=== PATIENT | male | born 1955 | race Caucasian/White ===

== ENCOUNTER 2025-01-17 21:37 | Inpatient (IN) | payer MEDICARE, OTHER ==
[~2025-01-17] VITALS: Ht 165.1 cm; Wt 74.8 kg
[2025-01-17 22:43] LABS: RED BLOOD CELL COUNT(AUTO) 4.49 MIL/uL (4.06-5.63); RED CELL DISTRIBUTION WIDTH 16.9 % (12.1-16.2); WHITE BLOOD COUNT (AUTO) 7.8 K/uL (3.6-10.2)
[2025-01-17 22:51] LABS: CREATININE 0.9 mg/dL (0.6-1.3); SODIUM SERUM 136 mmol/L (136-145); UREA NITROGEN, BLOOD 8 mg/dL (7-18)
[2025-01-17 22:57] LABS: ASPARTATE AMINOTRANSFERASE 51 U/L (15-37); ETHANOL < 3 MG/DL (0-10); TOTAL PROTEIN, SERUM 6.6 g/dL (6.4-8.2)
[2025-01-17 23:29] LABS: BASOPHILS % (MANUAL) 1 % (0-2); EOSINOPHILS % (MANUAL) 4 % (0-8); LYMPHOCYTES % (MANUAL) 36 % (20-40); MONOCYTES % (MANUAL) 8 % (2-10); NEUTROPHILS % (MANUAL) 51 % (42-75); PLATELET ESTIMATE FEW CLUMPS PLATELET
[2025-01-17 23:35] LABS: PLATELET COUNT (AUTO) 144 K/uL (152-348)
[2025-01-17] MEDS ORDERED: BISA10SU61 RC (23:55)
[2025-01-17] MEDS ORDERED: THIA100T13 PO (23:55)
[2025-01-17] MEDS ORDERED: FURO-152 PO (23:55)
[2025-01-17] MEDS ORDERED: ACET650T10 PO (23:55)
[2025-01-17] MEDS ORDERED: LEVO100T PO (23:55)
[2025-01-17] MEDS ORDERED: MAGN400O6 PO (23:55)
[2025-01-17] MEDS ORDERED: LACT1CAP89 PO (23:55)
[2025-01-17] MEDS ORDERED: LACT10SO7 PO (23:55)
[2025-01-17] MEDS ORDERED: LORA-259 PO (23:55)
[2025-01-17] MEDS ORDERED: TEMA15CA PO (23:55)
[2025-01-17] MEDS ORDERED: QUET50TA24 PO (23:55)
[2025-01-17] MEDS ORDERED: MULT-1119 PO (23:55)
[2025-01-17] MEDS ORDERED: FOLI1TAB94 PO (23:55)
[2025-01-18 02:55] VITALS: BP 116/79
[2025-01-18] MEDS ORDERED: LORAZEPAM 1 MG TABLET PO PRN (03:45)
[2025-01-18] MEDS ORDERED: TEMAZEPAM 7.5 MG CAPSULE PO PRN ×2 (03:45)
[2025-01-18] MEDS: BLOOD SUGAR DIAGNOSTIC 1 EACH STRIP VI ONE (03:45)
[2025-01-18] MEDS ORDERED: MAG HYDROX/AL HYDROX/SIMETH 30 ML LIQUID UDC PO PRN (03:45)
[2025-01-18] MEDS ORDERED: MAGNESIUM HYDROXIDE 30 ML LIQUID UDC PO PRN (03:45)
[2025-01-18 04:14] VITALS: BP 125/89; TEMP 97.5; O2SAT 100
[2025-01-18 04:33] VITALS: BP 125/89; TEMP 97.5; O2SAT 100
[2025-01-18 08:29] VITALS: BP 124/86; TEMP 98; O2SAT 98
[2025-01-18] MEDS ORDERED: ACET325T53 PO (08:59)
[2025-01-18] MEDS ORDERED: NA P133E RC (08:59)
[2025-01-18 15:57] VITALS: BP 116/76; TEMP 98; O2SAT 98
[2025-01-18] MEDS ORDERED: FLEET ENEMA 133 ML BOTTLE RC PRN (16:00)
[2025-01-18] MEDS ORDERED: BISACODYL 10 MG SUPP.RECT RC PRN (16:00)
[2025-01-18 20:00] VITALS: BP 105/67; TEMP 98.1; O2SAT 97
[2025-01-18] MEDS: LACTULOSE 20 G/30 ML LIQUID UDC PO SCH (20:21)
[2025-01-19] MEDS: TEMAZEPAM 15 MG CAPSULE PO PRN (00:32)
[2025-01-19] MEDS: LEVOTHYROXINE SODIUM 100 MCG TABLET PO SCH (06:10)
[2025-01-19 08:25] VITALS: BP 116/68; TEMP 98.1; O2SAT 97
[2025-01-19] MEDS ORDERED: LACTOBACILLUS ACIDOPHILUS C PO SCH (09:00)
[2025-01-19] MEDS: CULTURELLE CAPSULE PO SCH (10:23)
[2025-01-19] MEDS: THIAMINE HCL 100 MG TABLET PO SCH (10:24)
[2025-01-19] MEDS: MULTIVITAMINS,THERAPEUTIC TABLET PO SCH (10:24)
[2025-01-19] MEDS: FUROSEMIDE 20 MG TABLET PO SCH (10:25)
[2025-01-19] MEDS: FOLIC ACID 1 MG TABLET PO SCH (10:26)
[2025-01-19 16:18] VITALS: BP 118/61; TEMP 98.1; O2SAT 97
[2025-01-19] MEDS: ACETAMINOPHEN 325 MG TABLET PO PRN (16:36)
[2025-01-19 20:00] VITALS: BP 118/70; TEMP 97.5; O2SAT 98
[2025-01-19] MEDS: MUPIROCIN 2% OINT 22 GM TUBE NS SCH (20:28)
[2025-01-20] MEDS: LORAZEPAM 1 MG TABLET PO PRN (04:05)
[2025-01-20 09:23] VITALS: BP 114/68; TEMP 98.7; O2SAT 97
[2025-01-20 15:04] VITALS: BP 96/68; TEMP 98.3; O2SAT 98
[2025-01-20 20:00] VITALS: BP 111/84; TEMP 98.5; O2SAT 97
[2025-01-20] MEDS: PHYTONADIONE 10 MG/1 ML AMPUL SQ ONE (22:11)
[2025-01-21 08:18] VITALS: BP 104/74; TEMP 98.3; O2SAT 98
[2025-01-21 16:55] VITALS: BP 109/61; TEMP 98.1; O2SAT 97
[2025-01-21 20:09] VITALS: BP 108/72; TEMP 98.1; O2SAT 96
[2025-01-22 08:35] VITALS: BP 112/80; TEMP 98.3; O2SAT 98
[2025-01-22 16:47] VITALS: BP 110/81; TEMP 98.1; O2SAT 97
[2025-01-22 20:00] VITALS: TEMP 98.5; O2SAT 100
[2025-01-23 08:16] VITALS: BP 124/61; TEMP 98.3; O2SAT 98
[2025-01-23] MEDS: ENSURE ENLIVE (VAN) 240 ML LIQUID PO SCH (09:15)
[2025-01-23 16:37] VITALS: TEMP 98.5; O2SAT 100
[2025-01-23 20:00] VITALS: BP 101/63; TEMP 97.2; O2SAT 98
[2025-01-24 07:51] VITALS: BP 115/75; TEMP 97.6; O2SAT 97
[2025-01-24 15:59] VITALS: BP 114/77; TEMP 97.4; O2SAT 98
[2025-01-25 08:00] VITALS: BP 123/75; TEMP 97.6; O2SAT 98
[2025-01-25 16:00] VITALS: BP 140/61; TEMP 97.6; O2SAT 98
[2025-01-25 19:00] VITALS: BP 112/63; TEMP 97.6; O2SAT 100
[2025-01-26 08:05] VITALS: BP 150/71; TEMP 97.6; O2SAT 98
[2025-01-26 16:35] VITALS: BP 137/76; TEMP 97; O2SAT 98
[2025-01-26 19:56] VITALS: BP 104/69; TEMP 98.2; O2SAT 98
[2025-01-27 07:50] VITALS: BP 111/81; TEMP 98.6; O2SAT 96
[2025-01-27 16:49] VITALS: BP 132/92; TEMP 98.4; O2SAT 99
[2025-01-27 20:00] VITALS: BP 111/75; TEMP 98.5; O2SAT 99
[2025-01-28 08:49] VITALS: BP 118/67; TEMP 98.6; O2SAT 96
[2025-01-28 16:36] VITALS: BP 132/92; TEMP 98.4; O2SAT 99
[2025-01-28 21:58] VITALS: BP 128/85; TEMP 98; O2SAT 100
[2025-01-29 08:14] VITALS: BP 107/74; TEMP 98.4; O2SAT 99
[2025-01-29 16:11] VITALS: BP 112/81; TEMP 98.4; O2SAT 99
[2025-01-29 20:22] VITALS: BP 114/68; TEMP 97.2; O2SAT 100
[2025-01-30 08:18] VITALS: BP 117/84; TEMP 98.6; O2SAT 96
[2025-01-30 16:29] VITALS: BP 118/79; TEMP 98.4; O2SAT 99
== END 2025-01-30 16:42 | DRG 885 ==
LOC: ER 21:37 → GPS 01-18 02:05
PROVIDERS: ADMIT Psychiatry & Neurology Psychiatry; ATTEND Internal Medicine
DX: F29 Unspecified psychosis not due to a substance or known physiological condition (principal); K76.82 Hepatic encephalopathy; K70.31 Alcoholic cirrhosis of liver with ascites; Z79.890 Hormone replacement therapy; Z79.899 Other long term (current) drug therapy; Z22.322 Carrier or suspected carrier of Methicillin resistant Staphylococcus aureus; E03.9 Hypothyroidism, unspecified; E66.9 Obesity, unspecified; Z68.27 Body mass index [BMI] 27.0-27.9, adult; Z91.199 Patient's noncompliance with other medical treatment and regimen due to unspecified reason; I10 Essential (primary) hypertension; I25.10 Atherosclerotic heart disease of native coronary artery without angina pectoris; R94.31 Abnormal electrocardiogram [ECG] [EKG]; F10.10 Alcohol abuse, uncomplicated
CPT/HCPCS: 36415; 70030-TC; 76700; 84443; 85730; A4663; G0480; J3430

== ENCOUNTER 2025-02-16 20:38 | Inpatient (IN) | payer MEDICARE, OTHER ==
[~2025-02-16] VITALS: Ht 167.6 cm; Wt 80.9 kg
[~2025-02-16 20:38] MED LIST: ACET325T53 PO; ACET650T10 PO; BISA10SU61 RC; FOLI1TAB94 PO; FURO-152 PO; LACT10SO7 PO; LACT1CAP89 PO; LEVO100T PO; MAGN400O6 PO; MULT-1119 PO; NA P133E RC; THIA100T13 PO
[2025-02-16 21:11] LABS: PLATELET COUNT (AUTO) 147 K/uL (152-348); RED BLOOD CELL COUNT(AUTO) 3.92 MIL/uL (4.06-5.63); RED CELL DISTRIBUTION WIDTH 17.1 % (12.1-16.2); WHITE BLOOD COUNT (AUTO) 6.3 K/uL (3.6-10.2)
[2025-02-16 21:22] LABS: CREATININE 0.7 mg/dL (0.6-1.3); SODIUM SERUM 137 mmol/L (136-145); UREA NITROGEN, BLOOD 8 mg/dL (7-18)
[2025-02-16 21:26] LABS: ETHANOL < 3 MG/DL (0-10)
[2025-02-16 21:28] LABS: ASPARTATE AMINOTRANSFERASE 44 U/L (15-37); TOTAL PROTEIN, SERUM 6.6 g/dL (6.4-8.2)
[2025-02-16 21:37] LABS: NT-PRO BNP 267 pg/mL (0-125)
[2025-02-16] MEDS: IV NS 1000 ML 1,000 ML IV ONE ×2 (21:43→22:20)
[2025-02-16 21:44] LABS: *BLOOD, URINE NEGATIVE (NEGATIVE); *CLARITY,URINE CLEAR (CLEAR); *COLOR,URINE YELLOW (YELLOW); *KETONES,URINE TRACE (NEGATIVE); *PROTEIN,URINE NEGATIVE (NEGATIVE); *UROBILINOGEN,URINE 1.0 E.U./dl (NORMAL); LEUKOCYTE ESTERASE ,URINE NEGATIVE (NEGATIVE); NITRITE, URINE NEGATIVE (NEGATIVE); UGLUCOSE NEGATIVE (NEGATIVE)
[2025-02-16] MEDS ORDERED: diphenhydrAMINE 50 MG/1 ML VIAL ONE (21:44)
[2025-02-16] MEDS ORDERED: LORAZEPAM 2 MG/1 ML VIAL ONE (21:46)
[2025-02-16] MEDS: diphenhydrAMINE 50 MG/1 ML VIAL IV ONE (21:49)
[2025-02-16] MEDS: LORAZEPAM 2 MG/1 ML VIAL IV ONE (21:49)
[2025-02-16 21:50] LABS: *AMPHETAMINE, URINE NEGATIVE (NEGATIVE); *BARBITURATE, URINE NEGATIVE (NEGATIVE); *BENZODIAZEPINE, URINE NEGATIVE (NEGATIVE); *CANNABINOID, URINE NEGATIVE (NEGATIVE); *COCCAINE, URINE NEGATIVE (NEGATIVE); *OPIATE, URINE NEGATIVE (NEGATIVE); *PHENCYCLIDINE SCREEN,URINE NEGATIVE (NEGATIVE); FENTANYL, URINE NEGATIVE (NEGATIVE)
[2025-02-16 21:51] LABS: *BILIRUBIN,URIN 1+ (NEGATIVE)
[2025-02-16 21:54] LABS: CALCIUM OXALATE CRYSTALS,UR MODERATE /HPF (NONE SEEN); SQUAMOUS EPITHELIAL CELL,UR FEW /HPF (NONE SEEN)
[2025-02-16 22:00] LABS: LACTIC ACID 2.6 mmol/L (0.4-2.0)
[2025-02-16] MEDS ORDERED: CEFTRIAXONE /D5W 50ML IVPB **ER PYXIS IV ONE (22:17)
[2025-02-16 23:26] VITALS: BP 142/107
[2025-02-16] MEDS ORDERED: MAGNESIUM HYDROXIDE 30 ML LIQUID UDC PO PRN (23:30)
[2025-02-16] MEDS ORDERED: ONDANSETRON 4 MG/2 ML VIAL IV PRN (23:30)
[2025-02-16] MEDS ORDERED: ACETAMINOPHEN 325 MG TABLET PO PRN (23:30)
[2025-02-17] VITALS (7 sets, daily range): BP systolic 103–138; BP diastolic 77–99; TEMP 97.4–98.3; O2SAT 97–100
[2025-02-17] MEDS: POTASSIUM CHLORIDE 20 MEQ TAB.PRT.SR PO ONE (00:55)
[2025-02-17] MEDS: ENOXAPARIN SODIUM 40 MG/0.4 ML DISP.SYRIN SQ SCH (00:56)
[2025-02-17] MEDS: IV NS 1000 ML 1,000 ML IV PRN (01:05)
[2025-02-17] MEDS ORDERED: CEFEPIME HCL 1 G VIAL ONE (03:02)
[2025-02-17] MEDS: CEFEPIME (MAXEPIME) 1 G in IV DEXTROSE 5% 50 ML IV SCH (05:12)
[2025-02-17 06:50] LABS: PLATELET COUNT (AUTO) 136 K/uL (152-348); RED BLOOD CELL COUNT(AUTO) 3.59 MIL/uL (4.06-5.63); RED CELL DISTRIBUTION WIDTH 16.8 % (12.1-16.2); WHITE BLOOD COUNT (AUTO) 7.1 K/uL (3.6-10.2)
[2025-02-17 07:14] LABS: CREATININE 0.6 mg/dL (0.6-1.3); SODIUM SERUM 137 mmol/L (136-145); UREA NITROGEN, BLOOD 8 mg/dL (7-18)
[2025-02-17] MEDS: PANTOPRAZOLE SODIUM 40 MG VIAL IV SCH ×2 (09:26→21:11)
[2025-02-17] MEDS ORDERED: POVI37802 TP (13:04)
[2025-02-17] MEDS ORDERED: DOCU100C36 PO (13:05)
[2025-02-17] MEDS ORDERED: MAG-5 PO (13:07)
[2025-02-17] MEDS ORDERED: POTA10CA43 PO (13:08)
[2025-02-17] MEDS ORDERED: LORA-259 PO (13:09)
[2025-02-17] MEDS ORDERED: AMIN30LI2 PO (13:10)
[2025-02-17] MEDS ORDERED: RISP0.5T65 PO (13:11)
[2025-02-17] MEDS ORDERED: SENN8.6T19 PO (13:11)
[2025-02-17] MEDS ORDERED: TEMA15CA PO (13:12)
[2025-02-17] MEDS ORDERED: ZINC220T3 PO (13:13)
[2025-02-17] MEDS ORDERED: ASCO500C18 PO (13:13)
[2025-02-17] MEDS ORDERED: LORAZEPAM 2 MG/1 ML VIAL IM ONE (14:15)
[2025-02-17] MEDS ORDERED: LORAZEPAM 2 MG/1 ML VIAL IV ONE (14:15)
[2025-02-17] MEDS ORDERED: LORAZEPAM 2 MG/1 ML VIAL IV PRN (16:00)
[2025-02-18 05:48] VITALS: BP 117/72; TEMP 98; O2SAT 97
[2025-02-18] MEDS: LEVOTHYROXINE SODIUM 100 MCG TABLET PO SCH (06:53)
[2025-02-18] MEDS: THIAMINE HCL 100 MG TABLET PO SCH (09:42)
[2025-02-18] MEDS: FOLIC ACID 1 MG TABLET PO SCH (09:42)
[2025-02-18] MEDS: LACTULOSE 20 G/30 ML LIQUID UDC PO SCH (09:42)
[2025-02-18] MEDS: MULTIVITAMINS,THERAPEUTIC TABLET PO SCH (09:42)
[2025-02-18 10:18] LABS: PLATELET COUNT (AUTO) 133 K/uL (152-348); RED BLOOD CELL COUNT(AUTO) 3.47 MIL/uL (4.06-5.63); RED CELL DISTRIBUTION WIDTH 16.9 % (12.1-16.2); WHITE BLOOD COUNT (AUTO) 7.1 K/uL (3.6-10.2)
[2025-02-18 10:40] LABS: CREATININE 0.6 mg/dL (0.6-1.3); SODIUM SERUM 139 mmol/L (136-145); UREA NITROGEN, BLOOD 10 mg/dL (7-18)
[2025-02-18] MEDS: QUETIAPINE FUMARATE 25 MG TABLET PO SCH (10:48)
[2025-02-18 11:37] VITALS: BP 120/84; TEMP 98.2; O2SAT 96
[2025-02-18 14:25] VITALS: O2SAT 97
[2025-02-18 15:46] VITALS: BP 96/66; TEMP 98.4; O2SAT 96
[2025-02-18] MEDS: LORAZEPAM 2 MG/1 ML VIAL IM PRN (16:44)
[2025-02-18 19:25] VITALS: BP 143/69; TEMP 98.8; O2SAT 98
[2025-02-18 21:17] VITALS: O2SAT 97
[2025-02-18] MEDS: MUPIROCIN 2% OINT 22 GM TUBE NS SCH (21:34)
[2025-02-19 06:23] VITALS: BP 121/89; TEMP 98.6; O2SAT 98
[2025-02-19 06:38] LABS: PLATELET COUNT (AUTO) 134 K/uL (152-348); RED BLOOD CELL COUNT(AUTO) 3.41 MIL/uL (4.06-5.63); RED CELL DISTRIBUTION WIDTH 16.9 % (12.1-16.2); WHITE BLOOD COUNT (AUTO) 5.8 K/uL (3.6-10.2)
[2025-02-19 06:54] LABS: CREATININE 0.6 mg/dL (0.6-1.3); SODIUM SERUM 141 mmol/L (136-145); UREA NITROGEN, BLOOD 10 mg/dL (7-18)
[2025-02-19] MEDS: LORAZEPAM 1 MG TABLET PO SCH (09:04)
[2025-02-19 11:06] VITALS: BP 104/65; TEMP 97.7; O2SAT 99
[2025-02-19 15:19] VITALS: BP 123/66; TEMP 98.4; O2SAT 96
[2025-02-19 15:29] VITALS: O2SAT 96
[2025-02-19 19:00] VITALS: BP 134/84; TEMP 98.2; O2SAT 98
[2025-02-20 00:25] VITALS: O2SAT 96
[2025-02-20 04:00] VITALS: BP 111/85; TEMP 98.8; O2SAT 97
[2025-02-20 06:39] LABS: PLATELET COUNT (AUTO) 126 K/uL (152-348); RED BLOOD CELL COUNT(AUTO) 3.23 MIL/uL (4.06-5.63); RED CELL DISTRIBUTION WIDTH 16.1 % (12.1-16.2); WHITE BLOOD COUNT (AUTO) 6.5 K/uL (3.6-10.2)
[2025-02-20 06:55] LABS: CREATININE 0.6 mg/dL (0.6-1.3); SODIUM SERUM 140 mmol/L (136-145); UREA NITROGEN, BLOOD 8 mg/dL (7-18)
[2025-02-20] MEDS: ARGININE/GLUTAMINE/CALCIUM BMB 1 EACH POWD.PACK PO SCH (09:00)
[2025-02-20 11:36] VITALS: BP 116/85; TEMP 98.6; O2SAT 99
[2025-02-20] MEDS ORDERED: LORAZEPAM 2 MG/1 ML VIAL IV ONE (11:45)
[2025-02-20 12:01] VITALS: O2SAT 98
[2025-02-20 15:39] VITALS: BP 96/65; TEMP 98.4; O2SAT 100
[2025-02-20] MEDS: PANTOPRAZOLE SODIUM 40 MG TABLET.DR PO SCH (16:41)
[2025-02-20] MEDS: SODIUM HYPOCHLORITE 0.125% (QUARTER STRENGTH) 473 ML BOTTLE TP SCH (16:42)
[2025-02-20] MEDS: POTASSIUM CHLORIDE 20 MEQ TAB.PRT.SR PO ONE (16:51)
[2025-02-20 19:20] LABS: TOTAL VOLUME,BODY FLUID 5000 mL
[2025-02-20 19:21] LABS: WBC, BODY FLUID 126 /cu. mm (0-200/cu.mm)
[2025-02-20 19:30] VITALS: BP 116/75; TEMP 98.7; O2SAT 99
[2025-02-20 20:45] LABS: MONOCYTES,BODY FLUID 16 %
[2025-02-20] MEDS: PANTOPRAZOLE SODIUM 40 MG VIAL IV SCH (21:03)
[2025-02-21 04:14] VITALS: O2SAT 96
[2025-02-21 04:39] VITALS: BP 120/85; TEMP 98.5; O2SAT 100
[2025-02-21 06:37] LABS: PLATELET COUNT (AUTO) 120 K/uL (152-348); RED BLOOD CELL COUNT(AUTO) 3.56 MIL/uL (4.06-5.63); RED CELL DISTRIBUTION WIDTH 16.3 % (12.1-16.2); WHITE BLOOD COUNT (AUTO) 6.1 K/uL (3.6-10.2)
[2025-02-21 07:11] LABS: CREATININE 0.6 mg/dL (0.6-1.3); SODIUM SERUM 140 mmol/L (136-145); UREA NITROGEN, BLOOD 8 mg/dL (7-18)
[2025-02-21 11:59] VITALS: BP 124/84; TEMP 98; O2SAT 100
[2025-02-21] MEDS ORDERED: BUME2TAB7 PO (12:30)
[2025-02-21] MEDS ORDERED: CEFE2FRO IV (12:30)
[2025-02-21] MEDS ORDERED: SODI473S8 TP (12:30)
[2025-02-21] MEDS ORDERED: QUET25TA36 PO (12:30)
[2025-02-21] MEDS ORDERED: SPIR50TA PO (12:30)
[2025-02-21] MEDS ORDERED: PROP20TA7 PO (12:30)
[2025-02-21] MEDS ORDERED: NUTR1PAC14 PO (12:30)
[2025-02-21 16:18] VITALS: O2SAT 97
[2025-02-21] MEDS: QUETIAPINE FUMARATE 25 MG TABLET PO SCH (21:22)
== END 2025-02-21 23:10 | DRG 194 ==
LOC: ER 20:45 → TELE3 23:46 → MEDSURG3 02-17 14:10
PROVIDERS: ADMIT Nurse Practitioner Acute Care; ATTEND Nurse Practitioner Acute Care
PROC: 0W9G3ZZ Drainage of Peritoneal Cavity, Percutaneous Approach (ICD-10-PCS; principal; 2025-02-20)
DX: J15.9 Unspecified bacterial pneumonia (principal); E44.0 Moderate protein-calorie malnutrition; N39.0 Urinary tract infection, site not specified; L02.212 Cutaneous abscess of back [any part, except buttock and flank]; F23 Brief psychotic disorder; K70.31 Alcoholic cirrhosis of liver with ascites; K76.82 Hepatic encephalopathy; T71.162D Asphyxiation due to hanging, intentional self-harm, subsequent encounter; Z22.322 Carrier or suspected carrier of Methicillin resistant Staphylococcus aureus; Z91.199 Patient's noncompliance with other medical treatment and regimen due to unspecified reason; E03.9 Hypothyroidism, unspecified; Z79.890 Hormone replacement therapy; E88.09 Other disorders of plasma-protein metabolism, not elsewhere classified; E66.9 Obesity, unspecified; Z68.27 Body mass index [BMI] 27.0-27.9, adult; Z91.81 History of falling; Z79.899 Other long term (current) drug therapy; E87.6 Hypokalemia; R19.5 Other fecal abnormalities; F32.A Depression, unspecified; F41.9 Anxiety disorder, unspecified; R94.31 Abnormal electrocardiogram [ECG] [EKG]; R41.89 Other symptoms and signs involving cognitive functions and awareness; I25.10 Atherosclerotic heart disease of native coronary artery without angina pectoris
CPT/HCPCS: 36415; 70450; 71045; 71250; 83605; 83735; 83986; 84100; 84484; 85018; 85025; 85610; 85730; 87040; 87070; 87205; 94760; G0378; G0480; J0692; J0696; J1200; J1650; J2060; J2470; J7040